=== PATIENT | male | born 1970 | race Caucasian/White ===

== ENCOUNTER 2021-03-05 01:35 | Inpatient (IN) | payer OTHER ==
[~2021-03-05] VITALS: Ht 175.3 cm; Wt 97.1 kg
[2021-03-05 02:01] LABS: HEMOGLOBIN 13.7 gm/dl (14.0-17.5); RED BLOOD COUNT 4.26 M/UL (4.20-5.50); WHITE BLOOD COUNT 10.3 K/UL (4.5-11.0)
[2021-03-05] MEDS ORDERED: CLOPIDOGREL75 MG PO (13:00)
[2021-03-05] MEDS ORDERED: ATORVASTATIN CA40 MG PO (13:00)
[2021-03-05] MEDS ORDERED: ZESTRIL10 MG PO (13:01)
[2021-03-05] MEDS ORDERED: LOPRESSOR 25 MG25 MG PO (13:01)
[2021-03-05] MEDS ORDERED: ISOSORBIDE MONO60 MG PO (13:01)
[2021-03-06 06:41] LABS: RED BLOOD COUNT 3.82 M/UL (4.20-5.50); WHITE BLOOD COUNT 8.9 K/UL (4.5-11.0)
[2021-03-06 07:06] LABS: BUN/CREATININE RATIO 19 (0-10)
[2021-03-06 12:14] LABS: HBSAG SCREEN Negative (Negative); HEP A AB, IGM Negative (Negative); HEP B CORE AB, IGM Negative (Negative); HEP C VIRUS AB <0.1 (0.0-0.9)
[2021-03-07 09:15] LABS: BUN/CREATININE RATIO 17 (0-10)
[2021-03-08 08:15] LABS: BUN/CREATININE RATIO 15 (0-10)
[2021-03-09 07:18] LABS: HEMOGLOBIN 11.9 gm/dl (14.0-17.5); RED BLOOD COUNT 3.94 M/UL (4.20-5.50); WHITE BLOOD COUNT 10.2 K/UL (4.5-11.0)
[2021-03-09 07:29] LABS: BUN/CREATININE RATIO 19 (0-10)
[2021-03-10] MEDS ORDERED: ELIQUIS 2.5 MG2.5 MG PO (14:25)
[2021-03-10] MEDS ORDERED: DECADRON6 MG PO (14:25)
[2021-03-10] MEDS ORDERED: LEVOFLOXACIN500 MG PO (14:25)
[2021-03-10] MEDS ORDERED: PROAIR HFA8.5 GM INH (14:25)
--- NOTE | 2021-03-10 16:24 | NUR ---
Spoke with Desire Lennon on phone, she reports that patients room air sat was 87%. Will arrange for oxygen as per order from Dr. Lomeli.
== END 2021-03-10 18:30 | disposition home or self-care (01) | DRG 871 ==
LOC: ER1 01:35 → CDU 06:33 → M/S 06:33
PROVIDERS: Internal Medicine Infectious Disease; Student in an Organized Health Care Education/Training Program; ADMIT Internal Medicine
PROC: 8E0ZXY6 Isolation (ICD-10-PCS; principal; 2021-03-05)
PROC: 3E0333Z Introduction of Anti-inflammatory into Peripheral Vein, Percutaneous Approach (ICD-10-PCS; 2021-03-05)
DX: A41.89 Other specified sepsis (principal); U07.1 COVID-19; J15.9 Unspecified bacterial pneumonia; J96.01 Acute respiratory failure with hypoxia; N17.0 Acute kidney failure with tubular necrosis; J12.82 Pneumonia due to coronavirus disease 2019; E87.1 Hypo-osmolality and hyponatremia; K52.9 Noninfective gastroenteritis and colitis, unspecified; E86.0 Dehydration; R65.20 Severe sepsis without septic shock; I10 Essential (primary) hypertension; R94.5 Abnormal results of liver function studies; I25.10 Atherosclerotic heart disease of native coronary artery without angina pectoris; F17.200 Nicotine dependence, unspecified, uncomplicated; Z88.0 Allergy status to penicillin; Z95.1 Presence of aortocoronary bypass graft; Z98.890 Other specified postprocedural states; Z79.52 Long term (current) use of systemic steroids; Z79.899 Other long term (current) drug therapy
CPT/HCPCS: 36415; 36600; 71045; 80048; 80053; 80074; 81001; 82436; 82550; 82553; 82570; 82728; 82803; 83605; 83735; 83874; 83880; 84100; 84133; 84156; 84300; 84439; 84443; 84484; 85025; 85379; 85652; 86140; 87040; 87081; 89050; 93005; 94640; 94664; 94760; 96365; 96375; 99285; J1100; J1650; J1956; J2185; J3370; J7030; J7070; J7120; P9047; Q9967; U0002